=== PATIENT | female | born 1930 | race Caucasian/White ===

== ENCOUNTER 2016-12-25 22:22 | Emergency (ER) | payer MEDICARE, BC ==
--- NOTE | 2016-12-31 02:33 | ER ---
ADMIT: 12/25/2016 RM/LOC: ER [facility] MR#: [id number] [facility] [address] [place], [place] [id number] JHON ALLEN [address] [place] [address] Emergency Room Report SEX: F AGE: 86 : 1930 DATE: 12/25/2016 TIME: 2222 hours. Please refer to my T-sheet for complete H and P. HISTORY OF PRESENT ILLNESS: Briefly, the patient is an 86-year-old, who comes in with a headache. It has been on and off for several days. In fact, she has been seen by Dr. Salmon, had a CAT scan, being worked up. Her blood pressures have been running slightly high. She says it is just throbbing. It is kind of on and off, but it has been on today more than usual. No fevers. No neck pain. No chest pain. PHYSICAL EXAMINATION: VITAL SIGNS: Blood pressure 191/97, pulse 79, respirations 16, temp 97.8, saturating 98%. GENERAL: No acute distress. HEENT: Grossly normal. NECK: No neck meningismus. LUNGS: Clear. HEART: Regular. ABDOMEN: Soft. SKIN: No rash. NEURO: She is alert and oriented, nonfocal. EMERGENCY DEPARTMENT COURSE: CBC was normal except white count 11.5. Chemistries normal except BUN 28. Glucose was 104. Creatinine 1.2. She was given Ativan 0.5 IV, 2 mg of IV morphine, and Reglan 10 IV. Her symptoms were completely resolved. Her blood pressure improved. I had a long discussion with her. She actually has been under a little bit more stress recently. Her was saying things are improved here. She is going to follow up with Dr. Salmon. ASSESSMENT: Headache, treated in the emergency department as above. PLAN: Reglan 10 mg t.i.d. p.r.n. I gave her 6 to see if those help. Return if worse and follow up with Dr. Salmon. Checo Wise MD/ shaila JOB #: [id number] CC: Checo Wise MD, Attending Physician Damaris Salmon MD, Family Physician
== END 2016-12-26 00:05 | disposition home or self-care (01) ==
LOC: ER 22:22
DX: R51 Headache (principal); I10 Essential (primary) hypertension; Z79.899 Other long term (current) drug therapy